=== PATIENT | female | born 1975 | race African-American/Black ===

== ENCOUNTER 2017-09-28 02:57 | Emergency (ER) | payer OTHER ==
[~2017-09-28] VITALS: Ht 160 cm; Wt 122.9 kg
--- NOTE | ~2017-09-28 | EKG ---
[place] [address] [address] [facility] [place] [address] ELECTROCARDIOGRAM REPORT Name: PAMELA GUZMAN Meli [facility] [id number] Admission: 09/28/17 Attend Phys: Discharge: 09/28/17 Date of : 77 Report #: [id number] THIS REPORT FOR: //name// [facility] ED Test Date: 2017-09-28 Test Time: 03:18:22 Pat Name: PAMELA GUZMAN Department: Room: Gender: F Manager Intelligence: JAIRO : 1975 Requested By: Joe Lew Order Number: [id number] MD: Espinoza Moore Measurements Intervals [place] Rate: 74 P: 22 MS: 146 QRS: 5 QRSD: 98 T: -5 QT: 380 QTc: 422 Interpretive Statements Sinus rhythm Nonspecific T wave abnormality Compared to ECG 11/20/2006 14:38:12 T-wave abnormality now present Electronically Signed On 09-28-2017 15:59:10 WOOD [employer]ER by Espinoza Moore [email or web address] <ELECTRONICALLY SIGNED> By: Espinoza Moore MD, [facility] 09/28/17 [id number] [id number] 7 Espinoza Moore MD, FACC /EPI
[~2017-09-28 02:57] MED LIST: FIORICET 50-321 EACH PO
[2017-09-28] MEDS ORDERED: LORAZEPAM 0.50.5 M1 (03:11)
[2017-09-28 04:39] VITALS: BP 143/89
== END 2017-09-28 04:39 | disposition home or self-care (01) ==
LOC: ER 02:57
DX: F41.9 Anxiety disorder, unspecified (principal)

== ENCOUNTER 2018-07-07 03:34 | Emergency (ER) | payer OTHER ==
[~2018-07-07] VITALS: Ht 160 cm; Wt 131.5 kg
[~2018-07-07 03:34] MED LIST changes: +LORAZEPAM 0.50.5 M1
[2018-07-07] MEDS ORDERED: AMOXICILLIN 50500 MG PO (03:49)
[2018-07-07] MEDS ORDERED: NORCO 5-325 TA1 EACH PO (03:50)
[2018-07-07] MEDS ORDERED: CYMBALTA60 MG PO (03:50)
[2018-07-07] MEDS ORDERED: AUGMENTIN 875-1 EACH PO (04:58)
[2018-07-07] MEDS ORDERED: MOBIC15 MG PO (04:58)
[2018-07-07 06:53] VITALS: BP 126/80
== END 2018-07-07 06:55 | disposition home or self-care (01) ==
LOC: ER 03:34
DX: H66.91 Otitis media, unspecified, right ear (principal); R05 Cough; R61 Generalized hyperhidrosis; R13.10 Dysphagia, unspecified; F41.9 Anxiety disorder, unspecified; Z90.710 Acquired absence of both cervix and uterus; Z98.890 Other specified postprocedural states

== ENCOUNTER 2018-07-09 15:03 | Emergency (ER) | payer OTHER ==
[~2018-07-09] VITALS: Ht 160 cm; Wt 131.5 kg
[~2018-07-09 15:03] MED LIST changes: +AMOXICILLIN 50500 MG PO; +AUGMENTIN 875-1 EACH PO; +CYMBALTA60 MG PO; +MOBIC15 MG PO; +NORCO 5-325 TA1 EACH PO
[2018-07-09] MEDS ORDERED: NORCO 5-325 TA1 EACH PO (15:59)
[2018-07-09 16:57] VITALS: BP 178/79
== END 2018-07-09 16:40 | disposition home or self-care (01) ==
LOC: ER 15:03
DX: H66.93 Otitis media, unspecified, bilateral (principal); J01.90 Acute sinusitis, unspecified; R42 Dizziness and giddiness; F41.9 Anxiety disorder, unspecified; Z90.710 Acquired absence of both cervix and uterus; Z98.890 Other specified postprocedural states

== ENCOUNTER 2018-07-11 07:22 | Emergency (ER) | payer OTHER ==
[~2018-07-11] VITALS: Ht 160 cm; Wt 131.5 kg
[2018-07-11] MEDS ORDERED: AFRIN30 ML NASAL (07:35)
[2018-07-11] MEDS ORDERED: FLONASE 0.05%50 MCG NASAL (07:35)
[2018-07-11] MEDS ORDERED: DIFLUCAN150 M1 PO (08:38)
[2018-07-11] MEDS ORDERED: CLEOCIN HCL150 MG PO (08:38)
[2018-07-11] MEDS ORDERED: IBUPROFEN 400400 M2 PO (08:38)
[2018-07-11] MEDS ORDERED: VENTOLIN HFA 1818 GM INH (09:36)
[2018-07-11 09:49] VITALS: BP 129/73
== END 2018-07-11 09:49 | disposition home or self-care (01) ==
LOC: ER 07:22
DX: J06.9 Acute upper respiratory infection, unspecified (principal); F41.9 Anxiety disorder, unspecified; Z90.710 Acquired absence of both cervix and uterus; Z98.890 Other specified postprocedural states

== ENCOUNTER 2018-08-27 22:19 | Emergency (ER) | payer OTHER ==
[~2018-08-27] VITALS: Ht 160 cm; Wt 130.2 kg
[~2018-08-27 22:19] MED LIST changes: +AFRIN30 ML NASAL; +CLEOCIN HCL150 MG PO; +DIFLUCAN150 M1 PO; +FLONASE 0.05%50 MCG NASAL; +IBUPROFEN 400400 M2 PO; +VENTOLIN HFA 1818 GM INH
[2018-08-27] MEDS ORDERED: AUGMENTIN 500-1 EACH PO (23:28)
[2018-08-27] MEDS ORDERED: TESSALON PERLE100 MG PO (23:28)
[2018-08-28 00:34] VITALS: BP 121/68
== END 2018-08-27 23:18 | disposition home or self-care (01) ==
LOC: ER 22:19
DX: J18.8 Other pneumonia, unspecified organism (principal); F41.9 Anxiety disorder, unspecified; Z90.710 Acquired absence of both cervix and uterus; Z98.890 Other specified postprocedural states

== ENCOUNTER 2019-07-16 11:01 | Emergency (ER) | payer OTHER ==
[~2019-07-16] VITALS: Ht 160 cm; Wt 131.1 kg
[~2019-07-16 11:01] MED LIST changes: +AUGMENTIN 500-1 EACH PO; +TESSALON PERLE100 MG PO
[2019-07-16 11:38] LABS: BASOPHILS 0.6 % (0.0-2.0); EOSINOPHILS 2.1 % (0.0-3.0); MCH 30.1 pg (26.0-34.0); MCHC 32.6 g/dL (28.0-37.0); MCV 92.2 fL (80.0-100.0); MONOCYTES 5.9 % (1.0-8.0); PLATELET COUNT 373 thou/uL (150-400); POLYS 62.4 % (36.0-66.0); RBC 4.01 mil/uL (4.20-5.00); RDW 14.2 % (10.5-14.5); WBC 8.1 thou/uL (4.0-11.0)
[2019-07-16 11:43] LABS: ANION GAP 8 mmol/L (7-16); BUN 14 mg/dL (7-18); CALCIUM 9.5 mg/dL (8.5-10.1); CHLORIDE 101 mmol/L (98-107); CO2 29 mmol/L (21-32); GLUCOSE 134 mg/dL (74-106); POTASSIUM 3.8 mmol/L (3.5-5.1); SODIUM 138 mmol/L (136-145)
[2019-07-16 11:52] LABS: TROPONIN-I <0.06 ng/mL (<0.06)
[2019-07-16] MEDS ORDERED: VENTOLIN HFA 1818 GM INH (12:12)
[2019-07-16] MEDS ORDERED: PREDNISONE 10 M10 MG PO (12:12)
[2019-07-16 12:14] VITALS: BP 133/69
--- NOTE | 2019-07-17 19:07 | EKG ---
[place] [address] [place] [address] ELECTROCARDIOGRAM REPORT Name: GUZMANPAMELA Room #: [facility]#: [id number] Admission: 07/16/19 Attend Phys: Discharge: 07/16/19 Date of : 77 Report #: [id number] THIS REPORT FOR: //name// [facility] ED Test Date: 2019-07-16 Test Time: 11:06:41 Pat Name: PAMELA GUZMAN Department: Room: Gender: F Health Education Coordinator: maciel keith : 1975 Requested By: Trevin Monsalve Order Number: [id number] MD: Espinoza Moore Measurements Intervals [place] Rate: 94 P: 41 MD: 140 QRS: 10 QRSD: 106 T: 29 QT: 367 QTc: 459 Interpretive Statements Sinus rhythm Nonspecific ST and T wave abnormality Compared to ECG 09/28/2017 03:18:22 ST segment abnormality is more pronounced Electronically Signed On 07-17-2019 19:07:39 CAR WIPER by Espinoza Moore [email or web address] <ELECTRONICALLY SIGNED> By: Espinoza Moore MD, [facility] 07/17/19 [id number] 05 Espinoza Moore MD, FACC /EPI
== END 2019-07-16 12:15 | disposition home or self-care (01) ==
LOC: ER 11:01
PROVIDERS: Physician Assistant
DX: J98.01 Acute bronchospasm (principal); R09.1 Pleurisy; E66.9 Obesity, unspecified; F41.9 Anxiety disorder, unspecified; Z68.43 Body mass index [BMI] 50.0-59.9, adult; Z90.710 Acquired absence of both cervix and uterus; Z98.890 Other specified postprocedural states